=== PATIENT | male | born 1990 | race Caucasian/White ===

== ENCOUNTER 2020-10-05 14:53 | Emergency (ER) | payer OTHER, SELFPAY ==
--- NOTE | ~2020-10-05 | CT_ITS ---
EXAMINATION: CT ANGIOGRAM OF THE CHEST WITH AND WITHOUT CONTRAST (CT PULMONARY ANGIOGRAM FOR PE) EXAMINATION: CTA CHEST PE STUDY CLINICAL INFORMATION: sob s/p covid COMPARISON: No pertinent prior studies are available for comparison. TECHNIQUE: Prior to contrast administration, noncontrast localization images were obtained. After the administration of 70 mL of Omnipaque 350 IV contrast, contiguous thin slice helical images were obtained through the thorax. Reformatted MIP images in the coronal and sagittal planes were obtained at the acquisition workstation. This CT examination was performed using dose optimization techniques as appropriate, variously including the following: *Automated exposure control *Adjustment of mA and/or kV according to patient size (this includes techniques or standardized protocols for targeted exams where dose is matched to indication/reason for exam; i.e. extremities or head) *Use of iterative reconstruction technique DLP: 581 mGy-cm. FINDINGS: The bolus timing on this study was acceptable for visualization of the pulmonary arterial tree. There are no intraluminal pulmonary arterial filling defects present to suggest pulmonary embolism. Patchy groundglass airspace disease bilaterally without dense consolidation or air bronchograms. Central airways are grossly unremarkable. No abnormal pulmonary nodules or masses are appreciated. Prominent right greater than left hilar lymph nodes. There is no evidence of pleural effusion or pneumothorax. The heart is normal in size. No evidence of ventricular septal bowing or right heart strain. Great vessels are normal. Otherwise the mediastinum is unremarkable. There is no pericardial effusion or pericardial thickening. Limited evaluation of the upper abdominal viscera is unremarkable. CT/CT angio chest PE protocol IMPRESSION: No evidence for pulmonary emboli. Patchy groundglass airspace disease bilaterally suggesting atypical infectious or inflammatory causes. VTE: Negative
[2020-10-05 15:17] VITALS: BP 153/92; PULSE 99; RESP 16; TEMP 37.3; O2SAT 96; BMI 38.0
--- NOTE | 2020-10-05 16:05 | ECG_ITS ---
Test Reason : SOB Blood Pressure : / mmHG Vent. Rate : 088 BPM Atrial Rate : 088 BPM P-R Int : 130 ms QRS Dur : 094 ms QT Int : 346 ms P-R-T Axes : 044 036 -05 degrees QTc Int : 418 ms Normal sinus rhythm T wave abnormality, consider inferior ischemia Abnormal ECG No previous ECGs available Referred By: Jana Collins Electronically Signed By:Jon Chavez
--- NOTE | 2020-10-05 16:45 | ED_ITS ---
HPI - General Adult General Chief complaint: Dyspnea Stated complaint: SOB Time Seen by Provider: 10/05/20 15:49 Source: patient and family Mode of arrival: ambulatory Limitations: no limitations History of Present Illness HPI narrative: 30-year-old male with a past medical history of COVID-19 diagnosed on 09/18/2020 symptoms completely resolved 2 weeks later presenting to the ED with complaints of bilateral hands and feet pain for the past few days worse today. Reports that he followed up with [facility] today and they noticed that his oxygen saturation was 92-94% on room air therefore they did a walking oxygen saturation and went down to the 90-91% on room air therefore they sent him here for further evaluation and treatment. Although patient denies any cough or feeling short of breath. He denies any fevers, chills, dizziness, headaches, lightheadedness, change in vision, sore throat, nasal congestion/runny nose, chest pain, shortness of breath, dyspnea on exertion, orthopnea, abdominal pain, nausea/vomiting/diarrhea/constipation, lower extremity edema or any other symptoms complaints or concerns at this time. Denies recent travel. Related Data Allergies Allergy/AdvReac Type Severity Reaction Status Date / Time No Known Allergies Allergy Verified 10/05/20 15:16 Review of Systems Review of Systems: Constitutional : No Weight loss, No Fever, No Chills, No Night Sweats, No Fatigue, No Malaise ENT/Mouth : No Hearing loss, No Ear Pain, No Nasal Congestion, No Sinus Pain, No Hoarseness, No sore throat, No Rhinorrhea, No Swallowing Difficulty Eyes: No Eye Pain, No Swelling, No Redness, No Foreign Body, No Discharge, No Vision Changes Cardiovascular : No Chest Pain, No SOB, no Dyspnea on Exertion, No Orthopnea, No Edema, No extremity swelling, No Palpitations Respiratory : No Cough, No Sputum, No Wheezing, No Dyspnea Gastrointestinal : No Nausea, No Vomiting, No Diarrhea, No abdominal Pain, No Hematochezia, No Melena Genitourinary : No irregular bleeding, No Dysuria, No Urinary Frequency, No Hematuria, No Urinary Incontinence, No Urgency, No Flank Pain, No Urinary Flow Changes, No Hesitancy Musculoskeletal : + b/l hand/feet joint pain, No Myalgias, No Joint Swelling Skin : No Skin Lesions, No rash Neuro : No Weakness, No Numbness, No Paresthesias, No Loss of Consciousness, No Dizziness, No Headache Psych : No Anxiety/Panic, No Depression, No SI/HI/AH/VH Heme/Lymph: No Bruising, No Bleeding,No Lymphadenopathy Endocrine : No Polyuria, No Polydipsia, No Temperature Intolerance Yes all other systems are reviewed and are negative [facility] Past Medical History Attestation statement: The following information was validated with the patient. Medical History COVID-19 Social History Social History Advance Directives: No Advance Directives Information Provided: No Physical Exam Vital Signs: Vital Signs: Last Vital Signs Temp 99.1 F 10/05/20 15:17 Pulse 99 10/05/20 15:17 Resp 16 10/05/20 15:17 BP 153/92 H 10/05/20 15:17 Pulse Ox 96 10/05/20 15:17 Body Mass Index 38.0 vital signs have been reviewed as normal and appeared to be correct. Blood pressure hypertensive at 153/92. Heart rate normal. Respiration rate normal. Temperature normal. Oxygen saturation normal. Appearance: Alert. Oriented X3. No acute distress. Head: Normal external exam. Normocephalic. Eyes: PERRLA. EOMI. Conjunctiva and sclera normal. Eyelids normal. ENT: Pharynx normal. Uvula midline. Moist mucous membranes. No trismus noted. No drooling noted. No muffled voice noted. Neck: Normal inspection. Neck supple. FROM. No adenopathy. No meningeal signs. CVS: Normal heart rate and rhythm. Heart sound normal. No murmurs noted. Pulses normal throughout. Respiratory: No respiratory distress. Painless inspiration. Breath sounds normal. No wheezes/rales/rhonchi noted. Chest nontender. No accessory muscle usage noted or decreased air movement noted. Abdomen: Soft and nontender. Nondistended. No guarding. No rigidity. Bowel sounds normal in all 4 quadrants. No distention noted. No organomegaly noted. No visible injury noted. No rebound tenderness. Negative Rovsing sign. Negative obturator's sign. Negative psoas sign. Negative Lam sign. Back: No CVA tenderness. Full range of motion noted. Skin: Skin warm and dry. Normal skin color. Normal skin turgor. No rashes/lesions/lacerations noted. Extremities: No lower extremity edema. No calf tenderness noted. Extremities exhibit normal range of motion. Extremities nontender. Neuro: Oriented X 3. No motor deficit. No sensory deficit. Reflexes normal. Normal steady gait. Medical Decision Making MDM Narrative Medical decision making narrative: 16pm - 30-year-old male with a past medical history of COVID-19 diagnosed on 09/18/2020 symptoms completely resolved 2 weeks later presenting to the ED with complaints of bilateral hands and feet pain for the past few days worse today. Reports that he followed up with [facility] today and they noticed that his oxygen saturation was 92-94% on room air therefore they did a walking oxygen saturation and went down to the 90-91% on room air therefore they sent him here for further evaluation and treatment. Although patient denies any cough or feeling short of breath. - Plan: Labs, EKG, CT scan of chest for PE then re-evaluate. Medical Records Medical records reviewed: Yes I reviewed the patient's medical records. Lab Data Lab results reviewed: Yes I reviewed the patient's lab results. ECG Data Attestation: I personally reviewed and interpreted this ECG as follows: Interpretation: Normal sinus rhythm with nonspecific T-wave abnormalities with a ventricular rate of 88 no acute ischemic changes are noted. No prior EKG in our system to compare to at this time. Critical Care Time Critical Care Time Critical Care Time: Yes Total Critical Care Time: 60 Attestation: I personally attest to this time spent taking care of the patient
[2020-10-05 16:57] LABS: MANUAL DIFF FLAG NO
[2020-10-05 17:00] LABS: Basophils Absolute Auto 0.1 X10*3/uL (0.0-0.2); Basophils Percent Auto 0.9 % (0-2); Hematocrit 46.2 % (42-52); Hemoglobin 15.2 g/dl (14.0-18.0); Imm Gran Abs Auto 0.12 X10*3/uL (0.00-0.03); Imm Gran Pct Auto 1.8 % (0.0-0.4); Lymphocytes Absolute Auto 1.9 X10*3/uL (1.2-4.9); Lymphocytes Percent Auto 28.6 % (20-40); Mean Corpuscular HGB Conc 32.9 g/dl (31.0-36.0); Mean Corpuscular Hemoglobin 28.5 pg (27.0-33.0); Mean Corpuscular Volume 86.7 fL (80-98); Mean Platelet Volume 10.1 fL (9.4-12.4); Monocytes Absolute Auto 0.7 X10*3/uL (0.1-1.2); Monocytes Percent Auto 10.1 % (2-11); Neutrophils Absolute Auto 3.9 X10*3/uL (2.0-8.3); Neutrophils Percent Auto 58.6 % (45-73); Platelet Count 424 X10*3/uL (160-400); Red Blood Count 5.33 X10*6/uL (4.60-5.80); Red Cell Distribution Width 12.8 % (11.0-16.0); White Blood Count 6.7 X10*3/uL (4.8-10.8)
[2020-10-05 17:06] LABS: Prothrombin Time 12.3 SEC (10.8-13.0)
[2020-10-05 17:09] LABS: D Dimer 263 NG/ML
[2020-10-05 17:22] LABS: Partial Thromboplastin Time 40.4 SEC (24.1-38.0)
[2020-10-05 17:30] LABS: B Type Natriuretic Peptide < 10 pg/mL (<100); Troponin-I High Sensitivity < 3.5 ng/L (<3.5-35.0)
[2020-10-05 17:31] LABS: Alanine Aminotransferase 159 U/L (0-40); Albumin Level 4.8 g/dL (3.5-5.0); Alkaline Phosphatase 94 U/L (39-117); Anion Gap 15 (12-20); Aspartate Amino Transferase 86 U/L (5-37); Bilirubin Total 0.4 mg/dL (0.0-1.0); Blood Urea Nitrogen 13 mg/dL (9-16); C Reactive Protein 0.15 mg/dL (< or = 0.50); Calcium 10.1 mg/dL (8.4-10.2); Carbon Dioxide 25 mmol/L (22-29); Chloride 107 mmol/L (96-108); Creatinine Clr Calc Pharmacy 189.3; Estimated Glomerular Filt Rate > 60; Glucose Random 92 mg/dL (60-115); Lactate Dehydrogenase 302 U/L (118-273); Magnesium 2.4 mg/dL (1.6-2.6); Potassium 4.9 mmol/L (3.3-5.1); Sodium 142 mmol/L (135-145); Total Protein 8.4 g/dL (6.5-8.0)
[2020-10-05 17:45] LABS: Procalcitonin 0.09 ng/mL
[2020-10-05 17:49] LABS: Ferritin 779 ng/mL (20-250)
[2020-10-05] MEDS: iohexoL 350 MG/ML 100 ML INFUS..BTL IV (18:38)
[2020-10-05 19:47] VITALS: BP 146/87; PULSE 85; RESP 20; TEMP 37.6; O2SAT 97
[2020-10-05 19:49] VITALS: O2SAT 96
--- NOTE | 2020-10-05 19:49 | PC.NURSE ---
Addendum entered by Ginger Cooper 10/05/20 20:20: This RN initially informed by previous RN that pt family member was mother. This RN informed by pt that family member is . Original Note: Pt aaox4, mom sitting next to patient. Pt denies feeling SOB at this time, states I feel like my breathing is normal. Pt VSS, ambulatory sat stable and HR increased from 85 at rest to 103 on exertion. Pt denies pain in hands at this time, does endorse some discomfort to bilateral feet. +CMS in all extremities. Pt ambulates with steady gait independently. VS and amb sat reported to SUSIE Mccabe. Pt requesting update on CTA and dispo plan, provider aware, provider to update pt. Pt offers no additional concerns at this time.
== END 2020-10-05 20:20 | disposition home or self-care (01) ==
PROVIDERS: Physician Assistant Medical; Emergency Provider Emergency Medicine; PCP Internal Medicine
DX: J98.8 Other specified respiratory disorders (principal); R06.02 Shortness of breath; Z86.16 Personal history of COVID-19
CPT/HCPCS: 36415; 71275; 80053; 82728; 83615; 83735; 83880; 84145; 84484; 85025; 85379; 85610; 85730; 86140; 93005; 99285; 99291; Q9967